=== PATIENT | female | born 1970 | race Caucasian/White ===

== ENCOUNTER → 2016-08-02 | Outpatient (REF) | payer MEDICAID ==
[~2016-08-02] MED LIST: LOSA50TA20 PO; ibuprofen OR
== END ==
LOC: M SFHCWAGY 12:51
PROVIDERS: ATTEND Nurse Practitioner Family
DX: N76.0 Acute vaginitis (principal)

== ENCOUNTER → 2016-12-29 | Outpatient (CLI) | payer MEDICAID, OTHER ==
--- NOTE | 2016-12-29 18:58 | REP ---
CHEST X-RAY PA AND LATERAL: 12/29/2016: Comparison: 11/30/2005, 03/04/2005 chest x-ray. Clinical history: Acute bronchitis. Findings: The two-view show the lung mac well inflated. CP angles are sharply defined. There is no effusion or lateral pleural thickening, peribronchial thickening and interstitial changes suggesting bronchitis or reactive airway disease. I do not see dense consolidation, pleural effusion or parenchymal mass. The heart is not enlarged and no vascular redistribution or pulmonary edema. The aorta is intact. Airway intact bony thorax without acute compression deformity. No free air under the diaphragm. Impression: 1. Perihilar changes of bronchitis or reactive airway disease. No dense consolidation or pleural effusion. Signed by Taras Barroso MD 12/29/2016 08:20 P
== END ==
LOC: M WUC 17:22
PROVIDERS: ATTEND Physician Assistant
DX: J20.9 Acute bronchitis, unspecified (principal)

== ENCOUNTER 2017-07-01 19:57 | Emergency (ER) | payer OTHER ==
[2017-07-01 23:21] LABS: HEMATOCRIT 40.5 % (36.0-47.0); MEAN CORPUSCULAR HEMOGLOBIN 31.3 pg (27.0-33.0); MEAN CORPUSCULAR HGB CONC 34.6 g/dl (32.0-36.5); MEAN CORPUSCULAR VOLUME 90.6 fl (80.0-96.0); PLATELET COUNT, AUTOMATED 272 10^3/uL (150-450); RED BLOOD COUNT 4.47 10^6/uL (4.00-5.40); RED CELL DISTRIBUTION WIDTH 13.6 % (11.5-14.5)
[2017-07-01 23:22] LABS: POSITIVE DIFF POS FLAG; WHITE BLOOD COUNT 16.2 10^3/uL (4.0-10.0)
[2017-07-01 23:23] LABS: ADD MANUAL DIFFER YES; DIFF SLIDE NUMBER 344; POSITIVE MORPH POS FLAG
[2017-07-01] MEDS: NS 1,000 ML IV (23:30)
[2017-07-01 23:33] LABS: D-DIMER QUANT 1900.5 ng/ml (<500)
[2017-07-01 23:42] LABS: ATYPICAL LYMPH 4 % (0-5); EOSINOPHILS 3 % (0-5); LYMPHOCYTES 41 % (16-52); MONOCYTES 3 % (0-8); NEUTROPHILS 49 % (35-75); PLATELET ESTIMATE NORMAL (NORMAL)
[2017-07-01 23:46] LABS: ANION GAP 8 MEQ/L (8-16); BLOOD UREA NITROGEN 31 MG/DL (7-18); CALCIUM LEVEL 9.9 MG/DL (8.5-10.1); CARBON DIOXIDE LEVEL 31 MEQ/L (21-32); CHLORIDE LEVEL 98 MEQ/L (98-107); CPK CREATINE PHOSPHOKINASE 61 U/L (26-192); GLOMERULAR FILTRATION RATE > 60.0 (>58); GLUCOSE, FASTING 116 MG/DL (70-100); MB/CK RELATIVE INDEX 1.63 (< OR =4); POTASSIUM SERUM 3.1 MEQ/L (3.5-5.1); SODIUM LEVEL 137 MEQ/L (136-145); TROPONIN I < 0.02 NG/ML (< 0.10)
[2017-07-02] MEDS ORDERED: ISOVUE-370 76% 100ML VIAL (Q9967) As Ordered (00:56)
== END 2017-07-02 02:48 | disposition home or self-care (01) ==
LOC: M ED 19:57
DX: R79.89 Other specified abnormal findings of blood chemistry (principal); R07.89 Other chest pain; I10 Essential (primary) hypertension; Z88.0 Allergy status to penicillin; Z88.1 Allergy status to other antibiotic agents; Z88.2 Allergy status to sulfonamides; F17.210 Nicotine dependence, cigarettes, uncomplicated
CPT/HCPCS: Q9967

== ENCOUNTER → 2017-07-05 | Outpatient (CLI) | payer OTHER ==
[2017-07-05 13:50] LABS: ANION GAP 8 MEQ/L (8-16); BLOOD UREA NITROGEN 13 MG/DL (7-18); CALCIUM LEVEL 8.5 MG/DL (8.5-10.1); CARBON DIOXIDE LEVEL 28 MEQ/L (21-32); CHLORIDE LEVEL 103 MEQ/L (98-107); CREATININE FOR GFR 0.63 MG/DL (0.55-1.30); GLOMERULAR FILTRATION RATE > 60.0 (>58); GLUCOSE, FASTING 86 MG/DL (70-100); POTASSIUM SERUM 3.9 MEQ/L (3.5-5.1); SODIUM LEVEL 139 MEQ/L (136-145); THYROID STIMULATING HORMONE 0.893 uIU/ML (0.358-3.740)
== END ==
LOC: M LAB 11:54
DX: I10 Essential (primary) hypertension (principal)
CPT/HCPCS: 84443

== ENCOUNTER → 2017-07-20 | Outpatient (CLI) | payer OTHER ==
[2017-07-20 11:52] LABS: BASO % 0.2 % (0.0-1.0); EOS # 0.2 10^3/uL (0.0-0.50); EOS % 2.6 % (0.0-3.0); HEMATOCRIT 34.9 % (36.0-47.0); HEMOGLOBIN 11.7 g/dl (12.0-16.0); IMMATURE GRANULOCYTE % 0.3 % (0-3.0); LYMPH # 2.4 10^3/uL (1.5-4.5); LYMPH % 36.1 % (24.0-44.0); MEAN CORPUSCULAR HEMOGLOBIN 31.4 pg (27.0-33.0); MEAN CORPUSCULAR HGB CONC 33.5 g/dl (32.0-36.5); MEAN CORPUSCULAR VOLUME 93.6 fl (80.0-96.0); MONO # 0.4 10^3/uL (0.0-0.8); MONO % 6.4 % (0.0-5.0); NEUTROPHILS # 3.6 10^3/uL (1.8-7.7); NEUTROPHILS % 54.4 % (36.0-66.0); PLATELET COUNT, AUTOMATED 174 10^3/uL (150-450); RED BLOOD COUNT 3.73 10^6/uL (4.00-5.40); RED CELL DISTRIBUTION WIDTH 13.4 % (11.5-14.5); WHITE BLOOD COUNT 6.6 10^3/uL (4.0-10.0)
[2017-07-20 11:54] LABS: SLIDE REVIEW Report; SOURCE PERIPHERAL SMEAR
[2017-07-20 11:55] LABS: REASON FOR REVIEW OTHER
== END ==
LOC: M LAB 11:15
DX: D72.89 Other specified disorders of white blood cells (principal); D64.9 Anemia, unspecified
CPT/HCPCS: 85025

== ENCOUNTER → 2017-07-24 | Outpatient (REF) | payer OTHER ==
[2017-07-24 18:04] LABS: APPEARANCE, URINE MANUAL HAZY (CLEAR); BILIRUBIN, URINE MANUAL NEGATIVE (NEGATIVE); BLOOD URINE MANUAL POSITIVE (NEGATIVE); COLOR, URINE MANUAL YELLOW (YELLOW); GLUCOSE, URINE (UA) MANUAL NEGATIVE (NEGATIVE); KETONE, URINE MANUAL NEGATIVE (NEGATIVE); LEUKOCYTE ESTERASE, URINE MAN NEGATIVE (NEGATIVE); NITRITE, URINE MANUAL NEGATIVE (NEGATIVE); PROTEIN, URINE MANUAL NEGATIVE (NEGATIVE); UROBILINOGEN, URINE MANUAL NORMAL (NORMAL)
[2017-07-24 18:05] LABS: MICROSCOPIC INDICATED? MAN YES (NO)
[2017-07-24 18:06] LABS: AMORPHOUS SEDIMENT, URINE LARGE AMOUNT (NEGATIVE); BACTERIA, URINE SMALL AMOUNT; HYALINE CAST, URINE NONE SEEN /lpf (0-1); MICROSCOPIC EXAM PERFORMED; SQUAMOUS EPITHELIAL CELL URINE LARGE AMOUNT /hpf (SMALL AMT); WBC, URINE 0-1 /hpf (0-3)
== END ==
LOC: M LAB REF 09:05
DX: M54.5 Low back pain (principal)
CPT/HCPCS: 81000

== ENCOUNTER → 2017-07-26 | Outpatient (CLI) | payer OTHER | LOC: M RAD 09:29 | DX: M54.5 Low back pain (principal); R31.9 Hematuria, unspecified | CPT/HCPCS: 74176 ==

== ENCOUNTER → 2017-08-19 | Outpatient (REF) | payer OTHER | LOC: M SFHCWAGY 11:36 | DX: Z12.4 Encounter for screening for malignant neoplasm of cervix (principal) | CPT/HCPCS: 88142 ==

== ENCOUNTER → 2017-08-19 | Outpatient (CLI) | payer OTHER | LOC: M WHC 10:49 | DX: R92.1 Mammographic calcification found on diagnostic imaging of breast (principal); Z80.0 Family history of malignant neoplasm of digestive organs | CPT/HCPCS: 77067 ==

== ENCOUNTER → 2018-02-07 | Outpatient (CLI) | payer OTHER | LOC: M RAD 10:47 | DX: M79.604 Pain in right leg (principal) | CPT/HCPCS: 93971 ==

== ENCOUNTER 2018-02-16 18:22 | Emergency (ER) | payer OTHER ==
[2018-02-16 19:32] LABS: BASO % 0.2 % (0.0-1.0); EOS # 0.1 10^3/uL (0.0-0.50); EOS % 1.3 % (0.0-3.0); HEMATOCRIT 35.3 % (36.0-47.0); IMMATURE GRANULOCYTE % 0.5 % (0-3.0); LYMPH % 23.5 % (24.0-44.0); MEAN CORPUSCULAR HEMOGLOBIN 30.5 pg (27.0-33.0); MEAN CORPUSCULAR VOLUME 89.8 fl (80.0-96.0); MONO # 0.4 10^3/uL (0.0-0.8); NEUTROPHILS # 5.9 10^3/uL (1.8-7.7); NEUTROPHILS % 69.5 % (36.0-66.0); PLATELET COUNT, AUTOMATED 257 10^3/uL (150-450); RED BLOOD COUNT 3.93 10^6/uL (4.00-5.40); RED CELL DISTRIBUTION WIDTH 13.3 % (11.5-14.5); WHITE BLOOD COUNT 8.5 10^3/uL (4.0-10.0)
[2018-02-16 19:51] LABS: INR 0.87; PROTHROMBIN TIME 11.9 SECONDS (12.1-14.4)
[2018-02-16 19:57] LABS: ALBUMIN 3.8 GM/DL (3.2-5.2); ALBUMIN/GLOBULIN RATIO 0.97 (1.00-1.93); ALKALINE PHOSPHATASE 139 U/L (45-117); ALT/SGPT 38 U/L (12-78); ANION GAP 8 MEQ/L (8-16); AST/SGOT 30 U/L (7-37); BILIRUBIN,DIRECT < 0.1 MG/DL (0.0-0.2); BILIRUBIN,TOTAL 0.3 MG/DL (0.2-1.0); BLOOD UREA NITROGEN 14 MG/DL (7-18); CARBON DIOXIDE LEVEL 25 MEQ/L (21-32); CHLORIDE LEVEL 106 MEQ/L (98-107); CPK CREATINE PHOSPHOKINASE 157 U/L (26-192); CREATININE FOR GFR 0.85 MG/DL (0.55-1.30); GLOMERULAR FILTRATION RATE > 60.0 (>58); GLUCOSE, FASTING 156 MG/DL (70-100); MB/CK RELATIVE INDEX 1.08 (< OR =4); POTASSIUM SERUM 3.8 MEQ/L (3.5-5.1); SODIUM LEVEL 139 MEQ/L (136-145); TOTAL PROTEIN 7.7 GM/DL (6.4-8.2); TROPONIN I < 0.02 NG/ML (< 0.10)
[2018-02-16] MEDS: GI COCKTAIL 50ML BTL(HYOSCYAMINE/MAALOX/LIDOCAINE VISCOUS)(1:3:1) PO (20:12)
== END 2018-02-16 21:10 | disposition home or self-care (01) ==
LOC: M ED 18:22
DX: R07.89 Other chest pain (principal); I10 Essential (primary) hypertension; E78.5 Hyperlipidemia, unspecified; Z79.899 Other long term (current) drug therapy; Z88.0 Allergy status to penicillin; Z88.1 Allergy status to other antibiotic agents; Z88.2 Allergy status to sulfonamides; Z87.891 Personal history of nicotine dependence
CPT/HCPCS: 71046

== ENCOUNTER → 2018-07-19 | Outpatient (CLI) | payer OTHER ==
[~2018-07-19] MED LIST changes: +ALPR0.25 PO; +CITA10TA5; +ESTR25TA; +LOSA100T5 PO; -LOSA50TA20 PO; +LOSA50TA88 PO; +PROV5TAB2; +TYLE500T78 PO; +VENTAER
--- NOTE | 2018-07-19 13:46 | REP ---
Chest two views HISTORY: Shortness of breath Comparison: 07/01/2017 The lungs are clear. The heart is normal in size. The pulmonary vasculature is normal in appearance. The bony structure is intact. IMPRESSION: No acute disease. Electronically Signed by Gagandeep Sevilla MD 07/19/2018 01:39 P
== END ==
LOC: M WUC 12:27
PROVIDERS: ATTEND Physician Assistant
DX: R06.02 Shortness of breath (principal)

== ENCOUNTER → 2018-08-10 | Outpatient (REF) | payer OTHER ==
[2018-08-10 12:54] LABS: BASO % 0.3 % (0.0-1.0); EOS # 0.1 10^3/uL (0.0-0.50); EOS % 2.2 % (0.0-3.0); HEMATOCRIT 33.8 % (36.0-47.0); HEMOGLOBIN 11.3 g/dl (12.0-15.5); LYMPH # 1.8 10^3/uL (1.5-4.5); LYMPH % 31.7 % (24.0-44.0); MEAN CORPUSCULAR HEMOGLOBIN 30.2 pg (27.0-33.0); MEAN CORPUSCULAR HGB CONC 33.4 g/dl (32.0-36.5); MEAN CORPUSCULAR VOLUME 90.4 fl (80.0-96.0); MONO # 0.4 10^3/uL (0.0-0.8); MONO % 6.4 % (0.0-5.0); NEUTROPHILS # 3.4 10^3/uL (1.8-7.7); NEUTROPHILS % 59.1 % (36.0-66.0); PLATELET COUNT, AUTOMATED 276 10^3/uL (150-450); RED BLOOD COUNT 3.74 10^6/uL (4.00-5.40); WHITE BLOOD COUNT 5.8 10^3/uL (4.0-10.0)
[2018-08-10 13:17] LABS: ALBUMIN 3.5 GM/DL (3.2-5.2); ALT/SGPT 20 U/L (12-78); BILIRUBIN,TOTAL 0.3 MG/DL (0.2-1.0); BLOOD UREA NITROGEN 20 MG/DL (7-18); CALCIUM LEVEL 8.8 MG/DL (8.5-10.1); CARBON DIOXIDE LEVEL 27 MEQ/L (21-32); CHLORIDE LEVEL 104 MEQ/L (98-107); CHOLESTEROL LEVEL 177 MG/DL (<200); CHOLESTEROL RISK RATIO 3.933 (<5); CREATININE FOR GFR 0.55 MG/DL (0.55-1.30); GLOMERULAR FILTRATION RATE > 60.0 (>58); GLUCOSE, FASTING 99 MG/DL (70-100); HDL CHOLESTEROL 45 MG/DL (>40); LDL CHOLESTEROL 106 MG/DL (<100); NON-HDL-C 132 MG/DL; POTASSIUM SERUM 4.3 MEQ/L (3.5-5.1); SODIUM LEVEL 138 MEQ/L (136-145); TOTAL PROTEIN 6.7 GM/DL (6.4-8.2); TRIGLYCERIDES LEVEL 129 MG/DL (<150)
== END ==
LOC: M LABDRAW1 12:45
PROVIDERS: ATTEND Family Medicine
DX: I10 Essential (primary) hypertension (principal)

== ENCOUNTER → 2018-09-29 | Outpatient (REF) | payer OTHER ==
[~2018-09-29] MED LIST changes: +FLAG500T PO; +FLUO20CA19
== END ==
LOC: M LAB REF 13:44
PROVIDERS: ATTEND Physician Assistant
DX: R10.13 Epigastric pain (principal)

== ENCOUNTER → 2018-09-29 | Outpatient (CLI) | payer OTHER ==
--- NOTE | 2018-09-29 11:31 | REP ---
KUB: Two views. History: Pain. Findings: Bowel gas pattern is normal. Multiple pelvic phleboliths are noted bilaterally. No bony abnormality is seen. Psoas margins and flank stripes are intact. No mass organomegaly is seen. Impression: Negative KUB. Electronically Signed by Yonas Herndon MD 09/29/2018 11:23 A
[2018-09-29 13:04] LABS: BASO % 0.3 % (0.0-1.0); EOS # 0.1 10^3/uL (0.0-0.50); EOS % 1.3 % (0.0-3.0); HEMATOCRIT 36.3 % (36.0-47.0); HEMOGLOBIN 11.8 g/dl (12.0-15.5); LYMPH # 1.8 10^3/uL (1.5-4.5); LYMPH % 23.7 % (24.0-44.0); MEAN CORPUSCULAR HGB CONC 32.5 g/dl (32.0-36.5); MEAN CORPUSCULAR VOLUME 92.4 fl (80.0-96.0); MONO # 0.5 10^3/uL (0.0-0.8); MONO % 6.6 % (0.0-5.0); NEUTROPHILS % 67.6 % (36.0-66.0); PLATELET COUNT, AUTOMATED 261 10^3/uL (150-450); RED BLOOD COUNT 3.93 10^6/uL (4.00-5.40); WHITE BLOOD COUNT 7.4 10^3/uL (4.0-10.0)
[2018-09-29 13:27] LABS: ALBUMIN 3.8 GM/DL (3.2-5.2); ALT/SGPT 26 U/L (12-78); AMYLASE 25 U/L (25-115); BILIRUBIN,TOTAL 0.4 MG/DL (0.2-1.0); BLOOD UREA NITROGEN 12 MG/DL (7-18); C REACTIVE PROTEIN QUANTITATIV 1.15 MG/DL (0.00-0.30); CARBON DIOXIDE LEVEL 28 MEQ/L (21-32); CHLORIDE LEVEL 102 MEQ/L (98-107); CREATININE FOR GFR 0.64 MG/DL (0.55-1.30); ERYTHROCYTE SEDIMENTATION RATE 45 mm/hr (0-20); GLOMERULAR FILTRATION RATE > 60.0 (>58); GLUCOSE, FASTING 99 MG/DL (70-100); LIPASE 58 U/L (73-393); POTASSIUM SERUM 4.2 MEQ/L (3.5-5.1); SODIUM LEVEL 139 MEQ/L (136-145); TOTAL PROTEIN 6.9 GM/DL (6.4-8.2)
== END ==
LOC: M WUC 10:44
PROVIDERS: ATTEND Physician Assistant
DX: R10.13 Epigastric pain (principal)

== ENCOUNTER 2018-09-30 20:58 | Emergency (ER) | payer OTHER ==
[~2018-09-30] VITALS: Ht 170.2 cm; Wt 100.0 kg
[~2018-09-30 20:58] MED LIST changes: -FLAG500T PO; -FLUO20CA19
[2018-09-30] MEDS ORDERED: FLUO20CA19 (21:23)
[2018-09-30] MEDS ORDERED: cloNIDine 0.1 MG TAB PO ONE ×2 (21:45→22:30)
[2018-09-30 22:34] VITALS: BP 170/110
[2018-09-30] MEDS ORDERED: FLAG500T PO (23:16)
[2018-09-30 23:47] VITALS: BP 125/79
== END 2018-09-30 23:48 | disposition home or self-care (01) ==
LOC: M ED 20:58
DX: I10 Essential (primary) hypertension (principal); T36.8X5A Adverse effect of other systemic antibiotics, initial encounter; X58.XXXA Exposure to other specified factors, initial encounter; Y92.89 Other specified places as the place of occurrence of the external cause; J45.909 Unspecified asthma, uncomplicated; F41.9 Anxiety disorder, unspecified; Z79.899 Other long term (current) drug therapy; Z88.0 Allergy status to penicillin; Z88.1 Allergy status to other antibiotic agents; Z88.2 Allergy status to sulfonamides; Z88.8 Allergy status to other drugs, medicaments and biological substances

== ENCOUNTER → 2018-10-19 | Outpatient (REF) | payer OTHER ==
[~2018-10-19] MED LIST changes: +FLAG500T PO; +FLUO20CA19
[2018-10-19 15:03] LABS: BASO % 0.3 % (0.0-1.0); EOS # 0.1 10^3/uL (0.0-0.50); EOS % 1.7 % (0.0-3.0); HEMATOCRIT 38.3 % (36.0-47.0); HEMOGLOBIN 12.3 g/dl (12.0-15.5); LYMPH # 1.7 10^3/uL (1.5-4.5); LYMPH % 28.3 % (24.0-44.0); MEAN CORPUSCULAR HEMOGLOBIN 29.8 pg (27.0-33.0); MEAN CORPUSCULAR HGB CONC 32.1 g/dl (32.0-36.5); MEAN CORPUSCULAR VOLUME 92.7 fl (80.0-96.0); MONO # 0.4 10^3/uL (0.0-0.8); MONO % 6.3 % (0.0-5.0); NEUTROPHILS # 3.8 10^3/uL (1.8-7.7); NEUTROPHILS % 63.1 % (36.0-66.0); PLATELET COUNT, AUTOMATED 269 10^3/uL (150-450); RED BLOOD COUNT 4.13 10^6/uL (4.00-5.40); WHITE BLOOD COUNT 6.1 10^3/uL (4.0-10.0)
[2018-10-19 15:37] LABS: ALBUMIN 3.9 GM/DL (3.2-5.2); ALT/SGPT 24 U/L (12-78); BILIRUBIN,TOTAL 0.3 MG/DL (0.2-1.0); BLOOD UREA NITROGEN 16 MG/DL (7-18); CALCIUM LEVEL 9.7 MG/DL (8.5-10.1); CARBON DIOXIDE LEVEL 29 MEQ/L (21-32); CHLORIDE LEVEL 106 MEQ/L (98-107); CREATININE FOR GFR 0.71 MG/DL (0.55-1.30); GLOMERULAR FILTRATION RATE > 60.0 (>58); GLUCOSE, FASTING 103 MG/DL (70-100); MAGNESIUM LEVEL 1.7 MG/DL (1.8-2.4); POTASSIUM SERUM 4.8 MEQ/L (3.5-5.1); SODIUM LEVEL 141 MEQ/L (136-145)
== END ==
LOC: M LABDRAW1 13:59
PROVIDERS: ATTEND Family Medicine
DX: A04.72 Enterocolitis due to Clostridium difficile, not specified as recurrent (principal)

== ENCOUNTER → 2018-10-27 | Outpatient (REF) | payer OTHER ==
[2018-10-27 13:00] LABS: FREE T3 2.7 PG/ML (2.2-4.0); FREE T4 0.96 NG/DL (0.76-1.46); THYROID STIMULATING HORMONE 3.08 uIU/ML (0.358-3.740)
== END ==
LOC: M LABDRAW1 11:50
PROVIDERS: ATTEND Family Medicine
DX: E07.9 Disorder of thyroid, unspecified (principal); R70.0 Elevated erythrocyte sedimentation rate

== ENCOUNTER 2019-01-02 09:47 | Emergency (ER) | payer OTHER ==
[~2019-01-02] VITALS: Ht 167.6 cm; Wt 104.5 kg
[2019-01-02 10:33] LABS: BASO % 0.4 % (0.0-1.0); EOS # 0.2 10^3/uL (0.0-0.50); EOS % 2.4 % (0.0-3.0); HEMATOCRIT 36.6 % (36.0-47.0); HEMOGLOBIN 12.1 g/dl (12.0-15.5); LYMPH # 1.9 10^3/uL (1.5-4.5); MEAN CORPUSCULAR HEMOGLOBIN 30.6 pg (27.0-33.0); MEAN CORPUSCULAR HGB CONC 33.1 g/dl (32.0-36.5); MEAN CORPUSCULAR VOLUME 92.4 fl (80.0-96.0); MONO # 0.6 10^3/uL (0.0-0.8); MONO % 7.9 % (0.0-5.0); NEUTROPHILS # 4.8 10^3/uL (1.8-7.7); NEUTROPHILS % 63.4 % (36.0-66.0); PLATELET COUNT, AUTOMATED 263 10^3/uL (150-450); RED BLOOD COUNT 3.96 10^6/uL (4.00-5.40); WHITE BLOOD COUNT 7.6 10^3/uL (4.0-10.0)
[2019-01-02 10:44] LABS: INR 0.96; PROTHROMBIN TIME 12.5 SECONDS (11.8-14.0)
[2019-01-02] MEDS ORDERED: LOSA100T50 PO (10:49)
[2019-01-02 10:52] LABS: BLOOD UREA NITROGEN 17 MG/DL (7-18); CALCIUM LEVEL 8.9 MG/DL (8.5-10.1); CARBON DIOXIDE LEVEL 26 MEQ/L (21-32); CHLORIDE LEVEL 106 MEQ/L (98-107); CK-MB VALUE MASS 1.6 NG/ML (<3.6); CPK CREATINE PHOSPHOKINASE 114 U/L (26-192); CREATININE FOR GFR 0.78 MG/DL (0.55-1.30); GLOMERULAR FILTRATION RATE > 60.0 (>58); GLUCOSE, FASTING 122 MG/DL (70-100); POTASSIUM SERUM 3.8 MEQ/L (3.5-5.1); SODIUM LEVEL 139 MEQ/L (136-145); TROPONIN I < 0.02 NG/ML (< 0.10)
--- NOTE | 2019-01-02 11:06 | REP ---
Clinical: Acute chest pain . Comparison: 07/19/2018 . Findings: The mediastinum and cardiac silhouette are stable and within normal limits for portable technique. The lung mac are clear without acute consolidation, effusion, or pneumothorax. Skeletal structures are intact. Impression: No acute cardiopulmonary process appreciated. Electronically Signed by Henry Beavers MD 01/02/2019 10:57 A
[2019-01-02] MEDS ORDERED: HYDR12.55 PO (13:12)
[2019-01-02 13:16] VITALS: BP 150/85
[2019-01-02] MEDS ORDERED: NORV5TAB PO (13:28)
--- NOTE | 2019-01-03 19:27 | ECGEPIP ---
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
== END 2019-01-02 13:45 | disposition home or self-care (01) ==
LOC: M ED 09:47
DX: I10 Essential (primary) hypertension (principal); E87.5 Hyperkalemia; J45.909 Unspecified asthma, uncomplicated; Z87.891 Personal history of nicotine dependence; Z88.0 Allergy status to penicillin; Z88.2 Allergy status to sulfonamides; Z88.1 Allergy status to other antibiotic agents; Z79.899 Other long term (current) drug therapy

== ENCOUNTER → 2019-01-25 | Outpatient (CLI) | payer OTHER ==
[~2019-01-25] MED LIST changes: +AMLO25TA PO; +HYDR12.55 PO; +LOSA100T50 PO; +NORV5TAB PO; +PRIL20TA2 PO; +PROZ20CA11 PO
--- NOTE | 2019-01-30 16:15 | SLEEPHOME ---
DATE OF PROCEDURE: 01/25/2019 ORDERED BY: KUMAR John Diagnostic home sleep testing was performed due to concern for the obstructive sleep apnea syndrome in this patient with a history of excessive somnolence and nonrestorative sleep who has comorbidities of hypertension, obesity and acid reflux disease. For testing a nocturnal T3 respiratory monitoring device was used. Continuous record was made of pulse, oxygen saturation, airflow, chest, abdominal strain and body position. 5 hours and 59 minutes of data were reviewed. There were 5 hours and 26 minutes marked as time in bed. During the interval marked time in bed, there were 28 respiratory events identified of 10 seconds in duration or greater for a respiratory event index of 5.1. The events were primarily obstructive. Baseline pulse rate 86, pulse rate ranged 65-117. Baseline saturation 93%. Saturations fell only to 90%. Testing was performed in both the supine and nonsupine positions. IMPRESSION: Abnormal home sleep testing with repetitive respiratory events and oxygen desaturations to 90% with a respiratory event index of 5.1 is consistent with the obstructive sleep apnea syndrome. RECOMMENDATIONS: As the patient's events were associated with the supine posture, sleep position retraining for avoidance of the supine posture would be a reasonable first intervention. Should sleep symptoms persist, further evaluation may be needed.
== END ==
LOC: M SLEEP HO 11:15
PROVIDERS: ATTEND Nurse Practitioner Family
DX: R40.0 Somnolence (principal)

== ENCOUNTER → 2019-01-29 | Outpatient (CLI) | payer OTHER ==
[~2019-01-29] MED LIST changes: -AMLO25TA PO; -PRIL20TA2 PO; -PROZ20CA11 PO
[2019-01-29 11:43] LABS: ALBUMIN 3.5 GM/DL (3.2-5.2); ALT/SGPT 30 U/L (12-78); BILIRUBIN,TOTAL 0.3 MG/DL (0.2-1.0); BLOOD UREA NITROGEN 23 MG/DL (7-18); CARBON DIOXIDE LEVEL 29 MEQ/L (21-32); CHLORIDE LEVEL 102 MEQ/L (98-107); CHOLESTEROL LEVEL 229 MG/DL (<200); CHOLESTEROL RISK RATIO 4.978 (<5); CREATININE FOR GFR 0.75 MG/DL (0.55-1.30); FREE T4 0.96 NG/DL (0.76-1.46); GLOMERULAR FILTRATION RATE > 60.0 (>51); GLUCOSE, FASTING 116 MG/DL (70-100); HDL CHOLESTEROL 46 MG/DL (>40); LDL CHOLESTEROL 153 MG/DL (<100); NON-HDL-C 183 MG/DL; SODIUM LEVEL 140 MEQ/L (136-145); TRIGLYCERIDES LEVEL 148 MG/DL (<150)
== END ==
LOC: M LAB 10:09
PROVIDERS: ATTEND Internal Medicine Cardiovascular Disease
DX: E78.5 Hyperlipidemia, unspecified (principal)

== ENCOUNTER → 2019-02-01 | Outpatient (CLI) | payer OTHER ==
[~2019-02-01] MED LIST changes: +AMLO25TA PO; +PRIL20TA2 PO; +PROZ20CA11 PO
--- NOTE | 2019-02-01 13:56 | REPMRS ---
Patient History The patient states she had a clinical breast exam in 01/2019. No known family history of cancer. Benign lumpectomy of the left breast, June 20, 2014. No Hormone Replacement Therapy Digital Woman Screen Mammo: February 01, 2019 - Exam #: [id number] Bilateral CC and MLO view(s) were taken. Technologist: Beena Fernandes, Technologist Prior study comparison: August 19, 2017, digital woman screen mammo performed at [facility]. June 18, 2015, digital woman screen mammo performed at [facility]. May 09, 2014, digital mammo diagnostic bilateral, performed at [facility]. FINDINGS: There are scattered fibroglandular densities. There has been no change in the appearance of the mammogram from the prior studies. There is a mild amount of scattered fibroglandular density which is fairly symmetric. There is no interval development of dominant mass, architectural distortion, or grouped microcalcification suggestive of malignancy. 3-D tomosynthesis shows no additional findings. Assessment: BI-RADS/ACR category 1 mammogram. Negative Mammogram. Recommendation Routine screening mammogram of both breasts in 1 year (for women over age 40). This patient's Lifetime Breast Cancer Risk is estimated at 7.3 %. This mammogram was interpreted with the aid of an FDA-approved computer-aided dectection system. Electronically Signed By: Sunny Herndon MD 02/01/19 [id number]
== END ==
LOC: M WHC 11:24
PROVIDERS: ATTEND Nurse Practitioner Family
DX: Z12.31 Encounter for screening mammogram for malignant neoplasm of breast (principal)

== ENCOUNTER 2019-03-09 08:31 | Day surgery (SDC) | payer OTHER ==
[~2019-03-09] VITALS: Ht 170.2 cm; Wt 106.5 kg
[~2019-03-09 08:31] MED LIST changes: +NS 1,000 ML IV ONE
[2019-03-09] MEDS ORDERED: LIDOCAINE 2% INJ 100 MG/5 ML SDV (FOR ANES.) As Ordered ONE (08:43)
[2019-03-09] MEDS ORDERED: PROPOFOL 200 MG/20 ML VIAL As Ordered ONE ×3 (08:43→11:02)
[2019-03-09] MEDS ORDERED: fentaNYL 100 MCG/2 ML INJECTION (J3010) As Ordered ONE (09:51)
--- NOTE | 2019-03-09 11:21 | ROOR ---
Patient Name: Natalya Uribe Procedure Date: 03/09/2019 10:28 AM Date of : 1970 Age: 49 Room: [facility] Gender: Female Note Status: Finalized Procedure: Upper GI endoscopy Indications: Dyspepsia Providers: Alberto Gutierrez MD Referring MD: Tony Ocampo MD Requesting Provider: Medicines: Monitored Anesthesia Care Complications: No immediate complications. Procedure: Pre-Anesthesia Assessment: - Prior to the procedure, a History and Physical was performed, and patient medications and allergies were reviewed. The patient is competent. The risks and benefits of the procedure and the sedation options and risks were discussed with the patient. All questions were answered and informed consent was obtained. Patient identification and proposed procedure were verified by the physician, the nurse and the anesthesiologist in the procedure room. Mental Status Examination: alert and oriented. Airway Examination: normal oropharyngeal airway and neck mobility. Respiratory Examination: clear to auscultation. CV Examination: normal. Prophylactic Antibiotics: The patient does not require prophylactic antibiotics. Prior Anticoagulants: The patient has taken no previous anticoagulant or antiplatelet agents. ASA Grade Assessment: III - A patient with severe systemic disease. After reviewing the risks and benefits, the patient was deemed in satisfactory condition to undergo the procedure. The anesthesia plan was to use monitored anesthesia care (MAC). Immediately prior to administration of medications, the patient was re-assessed for adequacy to receive sedatives. The heart rate, respiratory rate, oxygen saturations, blood pressure, adequacy of pulmonary ventilation, and response to care were monitored throughout the procedure. The physical status of the patient was re-assessed after the procedure. The Endoscope was introduced through the mouth, and advanced to the second part of duodenum. The upper GI endoscopy was accomplished without difficulty. The patient tolerated the procedure well. Findings: The examined esophagus was normal. The Z-line was regular and was found 40 cm from the incisors. Scattered mild inflammation characterized by erythema and granularity was found in the gastric antrum. Biopsies were taken with a cold forceps for Helicobacter pylori testing. Verification of patient identification for the specimen was done by the physician and nurse using the patient's name, date and medical record number. Estimated blood loss was minimal. The duodenal bulb and second portion of the duodenum were normal. Biopsies for histology were taken with a cold forceps for evaluation of celiac disease. Impression: - Normal esophagus. - Z-line regular, 40 cm from the incisors. - Gastritis. Biopsied. - Normal duodenal bulb and second portion of the duodenum. Biopsied. Recommendation: - Patient has a contact number available for emergencies. The signs and symptoms of potential delayed complications were discussed with the patient. Return to normal activities tomorrow. Written discharge instructions were provided to the patient. - High fiber diet. - Continue present medications. - Await pathology results. 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 - Telephone GI clinic for pathology results in 2 weeks. - Return to primary care physician. Alberto Gutierrez MD Alberto Gutierrez MD 03/09/2019 11:21:07 AM Electronically signed by Alberto Gutierrez MD Number of Addenda: 0 Note Initiated On: 03/09/2019 10:28 AM Estimated Blood Loss: Estimated blood loss was minimal.
--- NOTE | 2019-03-09 11:25 | ROOR ---
Patient Name: Natalya Uribe Procedure Date: 03/09/2019 10:29 AM Date of : 1970 Age: 49 Room: [facility] Gender: Female Note Status: Finalized Procedure: Colonoscopy Indications: Screening for colorectal malignant neoplasm Providers: Alberto Gutierrez MD Referring MD: Tony Ocampo MD Requesting Provider: Medicines: Monitored Anesthesia Care Complications: No immediate complications. Procedure: Pre-Anesthesia Assessment: - Prior to the procedure, a History and Physical was performed, and patient medications and allergies were reviewed. The patient is competent. The risks and benefits of the procedure and the sedation options and risks were discussed with the patient. All questions were answered and informed consent was obtained. Patient identification and proposed procedure were verified by the physician, the nurse and the anesthesiologist in the procedure room. Mental Status Examination: alert and oriented. Airway Examination: normal oropharyngeal airway and neck mobility. Respiratory Examination: clear to auscultation. CV Examination: normal. Prophylactic Antibiotics: The patient does not require prophylactic antibiotics. Prior Anticoagulants: The patient has taken no previous anticoagulant or antiplatelet agents. ASA Grade Assessment: II - A patient with mild systemic disease. After reviewing the risks and benefits, the patient was deemed in satisfactory condition to undergo the procedure. The anesthesia plan was to use monitored anesthesia care (MAC). Immediately prior to administration of medications, the patient was re-assessed for adequacy to receive sedatives. The heart rate, respiratory rate, oxygen saturations, blood pressure, adequacy of pulmonary ventilation, and response to care were monitored throughout the procedure. The physical status of the patient was re-assessed after the procedure. The Colonoscope was introduced through the anus and advanced to the terminal ileum, with identification of the appendiceal orifice and IC valve. The colonoscopy was performed without difficulty. The patient tolerated the procedure well. The quality of the bowel preparation was good. The ileocecal valve, appendiceal orifice, and rectum were photographed. Scope insertion time was 3 minutes. Scope withdrawal time was 9 minutes. The total duration of the procedure was 12 minutes. Findings: The perianal and digital rectal examinations were normal. A 6 mm polyp was found in the transverse colon. The polyp was sessile. The polyp was removed with a cold snare. Resection and retrieval were complete. Verification of patient identification for the specimen was done by the physician and nurse using the patient's name, date and medical record number. Estimated blood loss was minimal. Two sessile polyps were found in the recto-sigmoid colon. The polyps were 5 to 6 mm in size. These polyps were removed with a cold snare. Resection and retrieval were complete. Multiple small and large-mouthed diverticula were found from sigmoid to descending colon. There was no evidence of diverticular bleeding. Non-bleeding external and internal hemorrhoids were found during retroflexion. The hemorrhoids were medium-sized. Impression: - One 6 mm polyp in the transverse colon, removed with a cold snare. Resected and retrieved. - Two 5 to 6 mm polyps at the recto-sigmoid colon, removed with a cold snare. Resected and retrieved. - Moderate diverticulosis from sigmoid to descending colon. There was no evidence of diverticular bleeding. - Non-bleeding external and internal hemorrhoids. Recommendation: - Patient has a contact number available for emergencies. The signs and symptoms of potential delayed complications were discussed with the patient. Return to normal activities tomorrow. Written discharge instructions were provided to the patient. - High fiber diet. - Continue present medications. - Await pathology results. - Repeat colonoscopy in 3 - 5 years for surveillance based on pathology results. - Telephone GI clinic for pathology results in 2 weeks. - Return to primary care physician. Alberto Gutierrez MD Alberto Gutierrez MD 03/09/2019 11:25:01 AM Electronically signed by Alberto Gutierrez MD Number of Addenda: 0 Note Initiated On: 03/09/2019 10:29 AM Estimated Blood Loss: Estimated blood loss was minimal.
[2019-03-09 11:35] VITALS: BP 138/76
== END 2019-03-09 11:39 | disposition home or self-care (01) ==
LOC: M OPP 08:31
PROVIDERS: ATTEND Internal Medicine Gastroenterology
DX: Z12.11 Encounter for screening for malignant neoplasm of colon (principal); K63.5 Polyp of colon; K64.8 Other hemorrhoids; K57.30 Diverticulosis of large intestine without perforation or abscess without bleeding; R10.13 Epigastric pain; K29.70 Gastritis, unspecified, without bleeding; G47.30 Sleep apnea, unspecified; Z79.899 Other long term (current) drug therapy; Z88.0 Allergy status to penicillin; Z88.1 Allergy status to other antibiotic agents; Z88.8 Allergy status to other drugs, medicaments and biological substances
CPT/HCPCS: 43239; 45385; 88305; J3010

== ENCOUNTER → 2019-03-15 | Outpatient (CLI) | payer OTHER ==
[~2019-03-15] MED LIST changes: -NS 1,000 ML IV ONE
[2019-03-15 13:42] LABS: BLOOD UREA NITROGEN 20 MG/DL (7-18); CALCIUM LEVEL 9.1 MG/DL (8.5-10.1); CARBON DIOXIDE LEVEL 30 MEQ/L (21-32); CHLORIDE LEVEL 104 MEQ/L (98-107); CREATININE FOR GFR 0.69 MG/DL (0.55-1.30); GLOMERULAR FILTRATION RATE > 60.0 (>51); GLUCOSE, FASTING 124 MG/DL (70-100); POTASSIUM SERUM 3.5 MEQ/L (3.5-5.1); SODIUM LEVEL 141 MEQ/L (136-145)
--- NOTE | 2019-03-17 09:55 | ECGEPIP ---
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
== END ==
LOC: M LAB 12:25
PROVIDERS: ATTEND Orthopaedic Surgery Hand Surgery
DX: Z01.810 Encounter for preprocedural cardiovascular examination (principal); M67.432 Ganglion, left wrist; I10 Essential (primary) hypertension; Z79.899 Other long term (current) drug therapy

== ENCOUNTER → 2019-03-28 | Outpatient (REF) | payer OTHER ==
[2019-03-28 16:02] LABS: BLOOD UREA NITROGEN 23 MG/DL (7-18); CARBON DIOXIDE LEVEL 31 MEQ/L (21-32); CHLORIDE LEVEL 103 MEQ/L (98-107); CREATININE FOR GFR 0.77 MG/DL (0.55-1.30); GLOMERULAR FILTRATION RATE > 60.0 (>51); GLUCOSE, FASTING 116 MG/DL (70-100); POTASSIUM SERUM 3.5 MEQ/L (3.5-5.1); SODIUM LEVEL 140 MEQ/L (136-145)
== END ==
LOC: M LABDRAW1 13:45
PROVIDERS: ATTEND Physician Assistant
DX: M67.432 Ganglion, left wrist (principal)

== ENCOUNTER → 2019-04-04 | Outpatient (REF) | payer OTHER | LOC: M LAB REF 17:14 | PROVIDERS: ATTEND Orthopaedic Surgery Hand Surgery | DX: M67.432 Ganglion, left wrist (principal) ==

== ENCOUNTER → 2019-07-24 | Outpatient (CLI) | payer OTHER ==
[~2019-07-24] MED LIST changes: -FLUO20CA19; +FLUO20CA22; +METHACHOLINE KIT (J7674) INH ONE
--- NOTE | 2019-07-24 10:39 | PFTRPT ---
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 Review Status: Not Reviewed Pre-Bronch Post-Bronch Pred Actual %Pred Actual %Chng SPIROMETRY FVC (L) 3.78 3.10 81 3.02 -2 FEV1 (L) 2.99 2.50 83 2.50 FEV1/FVC (%) 80 81 100 83 2 FEF 25% (L/sec) 5.42 5.74 105 5.82 1 FEF 50% (L/sec) 3.90 3.39 86 3.57 5 FEF 75% (L/sec) 1.43 0.91 63 0.84 -7 FEF 25-75% (L/sec) 2.86 2.49 87 2.49 FEF Max (L/sec) 7.03 6.12 87 6.06 FIVC (L) 3.13 3.09 -1 FIF 50% (L/sec) 4.10 6.00 146 3.97 -33 FIF Max (L/sec) 6.04 4.32 -28 Expiratory Time (sec) 6.74 6.56 -2 Back Extrap Vol (L) 0.09 0.09 -3 Time To FEFmax (sec) 0.089 0.082 -7
--- NOTE | 2019-07-25 15:25 | METHCHAL ---
DATE OF PROCEDURE: 07/24/2019 INTERPRETATION: The study appears to be of excellent technical quality. Under protocol methacholine was administered. At a dose of 2.5 mg or 13.875CDUs, a 31% decline in the FEV1 was noted. The PC of 0.61 is significant. Flow rates did return to baseline post bronchodilator administration. IMPRESSION: Positive methacholine challenge study.
== END ==
LOC: M CARPUL 09:22
PROVIDERS: ATTEND Nurse Practitioner Family
DX: G47.33 Obstructive sleep apnea (adult) (pediatric) (principal)
CPT/HCPCS: 94070; 95070; J7674

== ENCOUNTER 2019-09-28 19:58 | Emergency (ER) | payer OTHER ==
[~2019-09-28] VITALS: Ht 167.6 cm; Wt 109.1 kg
[~2019-09-28 19:58] MED LIST changes: -METHACHOLINE KIT (J7674) INH ONE
[2019-09-28] MEDS ORDERED: ARNU1INH3 PO (20:28)
[2019-09-28] MEDS ORDERED: OMEP-221 PO (20:28)
[2019-09-28] MEDS ORDERED: ATOR40TA75 PO (20:28)
[2019-09-28] MEDS ORDERED: PHAZ1CAP7 PO (20:28)
[2019-09-28] MEDS ORDERED: ALBU8.5H (20:28)
[2019-09-28] MEDS ORDERED: ALLE180T33 PO (20:28)
[2019-09-28] MEDS ORDERED: AMLO10TA5 PO (20:28)
[2019-09-28] MEDS ORDERED: KETOROLAC 30 MG/ML 1ML VIAL IV ONE (20:45)
[2019-09-28] MEDS ORDERED: ONDANSETRON 4MG/2ML VIAL IV ONE (20:45)
[2019-09-28] MEDS ORDERED: NS 1,000 ML IV ONE (20:45)
[2019-09-28] MEDS ORDERED: GI COCKTAIL 50ML BTL(HYOSCYAMINE/MAALOX/LIDOCAINE VISCOUS)(1:3:1) PO ONE (20:45)
[2019-09-28 21:08] LABS: BASO % 0.3 % (0.0-1.0); EOS # 0.1 10^3/uL (0.0-0.5); EOS % 1.1 % (0.0-3.0); HEMATOCRIT 39.8 % (36.0-47.0); HEMOGLOBIN 12.8 g/dl (12.0-15.5); LYMPH # 1.4 10^3/uL (1.5-5.0); LYMPH % 13.1 % (24.0-44.0); MEAN CORPUSCULAR HEMOGLOBIN 28.4 pg (27.0-33.0); MEAN CORPUSCULAR HGB CONC 32.2 g/dl (32.0-36.5); MEAN CORPUSCULAR VOLUME 88.4 fl (80.0-96.0); MONO # 0.5 10^3/uL (0.0-0.8); MONO % 4.9 % (0.0-5.0); NEUTROPHILS # 8.5 10^3/uL (1.5-8.5); NEUTROPHILS % 79.7 % (36.0-66.0); PLATELET COUNT, AUTOMATED 292 10^3/uL (150-450); WHITE BLOOD COUNT 10.6 10^3/uL (4.0-10.0)
[2019-09-28 21:31] LABS: ALBUMIN 3.7 GM/DL (3.2-5.2); ALT/SGPT 42 U/L (12-78); BILIRUBIN,DIRECT 0.2 MG/DL (0.0-0.2); BILIRUBIN,TOTAL 0.4 MG/DL (0.2-1.0); CK-MB VALUE MASS 1.8 NG/ML (<3.6); CPK CREATINE PHOSPHOKINASE 99 U/L (26-192); LIPASE 39 U/L (73-393); MB/CK RELATIVE INDEX 1.82 (< OR =4); TOTAL PROTEIN 7.7 GM/DL (6.4-8.2); TROPONIN I < 0.02 NG/ML (< 0.10)
[2019-09-28] MEDS ORDERED: ISOVUE-370 76% 100ML VIAL As Ordered ONE (21:31)
--- NOTE | 2019-09-28 22:26 | REPVR ---
PROCEDURE INFORMATION: Exam: CT Abdomen And Pelvis With Contrast Exam date and time: 09/28/2019 9:53 PM Age: 49 years old Clinical indication: Abdominal pain; Localized; Left lower quadrant (llq); Additional info: Llq abd pain, diarrhea TECHNIQUE: Imaging protocol: Computed tomography of the abdomen and pelvis with intravenous contrast. Radiation optimization: All CT scans at this facility use at least one of these dose optimization techniques: automated exposure control; mA and/or kV adjustment per patient size (includes targeted exams where dose is matched to clinical indication); or iterative reconstruction. Contrast material: ISOVUE 370; Contrast volume: 100 ml; Contrast route: IV; COMPARISON: CT ABD PELVIS W/O CONTRAST 07/26/2017 9:46 AM FINDINGS: Liver: The liver is low attenuation indicating hepatic steatosis. Gallbladder and bile ducts: Normal. No calcified stones. No ductal dilation. Pancreas: Normal. No ductal dilation. Spleen: Normal. No splenomegaly. Adrenals: Stable nodule in the left adrenal gland. Normal right adrenal gland. Kidneys and ureters: Normal. No hydronephrosis. Stomach and bowel: There is wall thickening in the distal small bowel with associated edema in the adjacent small bowel mesentery. Mild small-bowel mucosal enhancement and intraluminal fluid are present. No small bowel obstruction. No pneumatosis. There is mild colonic diverticulosis without evidence of diverticulitis. Appendix: No evidence of appendicitis. Intraperitoneal space: Trace free fluid in the pelvis. No abscess or free air. Vasculature: Mild aortoiliac atherosclerotic disease. No abdominal aortic aneurysm. Lymph nodes: Unremarkable. No enlarged lymph nodes. Bladder: Unremarkable as visualized. Reproductive: Unremarkable as visualized. Bones/joints: There are mild degenerative changes in the spine and pelvis. Soft tissues: Unremarkable. IMPRESSION: 1. Mucosal enhancement and intraluminal fluid in the small bowel with mild mesenteric edema suggesting a viral or inflammatory enteritis. No bowel obstruction, perforation, or signs of ischemia. 2. Hepatic steatosis. 3. Colonic diverticulosis without evidence of diverticulitis. 4. Normal appendix. Electronically signed by: Crsitino Whatley On 09/28/2019 22:26:08 PM
[2019-09-28 23:00] VITALS: BP 124/63
== END 2019-09-28 23:24 | disposition home or self-care (01) ==
LOC: M ED 19:58
DX: K52.9 Noninfective gastroenteritis and colitis, unspecified (principal); I10 Essential (primary) hypertension; K57.90 Diverticulosis of intestine, part unspecified, without perforation or abscess without bleeding; Z87.891 Personal history of nicotine dependence; Z88.0 Allergy status to penicillin; Z88.1 Allergy status to other antibiotic agents; Z88.2 Allergy status to sulfonamides; Z79.899 Other long term (current) drug therapy
CPT/HCPCS: 36415; 74177; 80047; 80076; 82550; 82553; 83605; 83690; 85025; 87040; 93041; 96361; 96374; 96375; 99285; J1885; J2405; Q9967

== ENCOUNTER → 2019-11-22 | Outpatient (CLI) | payer OTHER ==
[~2019-11-22] MED LIST changes: +ALBU8.5H; +ALLE180T33 PO; +AMLO1TAB25 PO; +ARNU1INH3 PO; +ATOR40TA75 PO; +OMEP-221 PO; +PHAZ1CAP7 PO
[2019-11-22 17:31] LABS: HEMOGLOBIN A1c 7.4 %
[2019-11-22 17:38] LABS: ALBUMIN 3.6 GM/DL (3.2-5.2); ALT/SGPT 31 U/L (12-78); BILIRUBIN,TOTAL 0.4 MG/DL (0.2-1.0); BLOOD UREA NITROGEN 24 MG/DL (7-18); CALCIUM LEVEL 9.1 MG/DL (8.5-10.1); CARBON DIOXIDE LEVEL 28 MEQ/L (21-32); CHLORIDE LEVEL 102 MEQ/L (98-107); CHOLESTEROL LEVEL 139 MG/DL (<200); CREATININE FOR GFR 0.82 MG/DL (0.55-1.30); GLOMERULAR FILTRATION RATE > 60.0 (>51); GLUCOSE, FASTING 137 MG/DL (70-100); HDL CHOLESTEROL 41 MG/DL (>40); LDL CHOLESTEROL 71 MG/DL (<100); NON-HDL-C 98 MG/DL; POTASSIUM SERUM 3.7 MEQ/L (3.5-5.1); SODIUM LEVEL 135 MEQ/L (136-145); TOTAL PROTEIN 7.2 GM/DL (6.4-8.2); TRIGLYCERIDES LEVEL 133 MG/DL (<150)
== END ==
LOC: M PLALAB 12:08
PROVIDERS: ATTEND Physician Assistant
DX: Z13.1 Encounter for screening for diabetes mellitus (principal); E78.2 Mixed hyperlipidemia

== ENCOUNTER → 2020-04-10 | Outpatient (CLI) | payer OTHER ==
--- NOTE | 2020-04-10 11:32 | REPPI ---
INDICATION: PAIN. COMPARISON: Comparison CT study September 28, 2019.. TECHNIQUE: Single AP view of the pelvis. FINDINGS: The bony pelvic ring is intact. There is no evidence of fracture or arthropathy. There are multiple pelvic phleboliths. Visualized bowel gas pattern is normal. Sacrum and SI joints are intact. Psoas margins are symmetric. IMPRESSION: Negative AP view of the pelvis. <Electronically signed by Sunny Herndon > 04/10/20 [id number]
--- NOTE | 2020-04-10 11:35 | REPPI ---
INDICATION: PAIN LEFT HIP. COMPARISON: Comparison CT study September 28, 2019.. TECHNIQUE: AP and frogleg views. FINDINGS: Left hip joint space is preserved. Femoral head is smooth and rounded. Periarticular soft tissues are unremarkable. No fracture or erosive changes seen. IMPRESSION: Negative left hip radiographs. <Electronically signed by Sunny Herndon > 04/10/20 [id number]
== END ==
LOC: M PLAIMG 10:27
PROVIDERS: ATTEND Family Medicine
DX: M25.552 Pain in left hip (principal)

== ENCOUNTER → 2020-10-05 | Outpatient (CLI) | payer OTHER ==
[~2020-10-05] MED LIST changes: -ALBU8.5H; +ALBU8.5H INH; +CYAN500T14 PO; +NATU1TAB5 PO; +TRUL0.5I SC
== END ==
LOC: M LABSMTC 08:42
PROVIDERS: ATTEND Anesthesiology
DX: Z01.812 Encounter for preprocedural laboratory examination (principal); Z11.52 Encounter for screening for COVID-19

== ENCOUNTER 2020-10-10 11:53 | Day surgery (SDC) | payer OTHER ==
[~2020-10-10] VITALS: Ht 170.2 cm; Wt 114.8 kg
[~2020-10-10 11:53] MED LIST changes: +NS 1,000 ML IV ONE
[2020-10-10] MEDS ORDERED: propofoL 200 MG/20 ML VIAL As Ordered ONE ×2 (13:48→14:16)
[2020-10-10] MEDS ORDERED: LIDOCAINE 2% 100MG/5ML SDV (FOR ANES.) As Ordered ONE (13:48)
[2020-10-10] MEDS ORDERED: fentaNYL 100 MCG/2 ML INJECTION (J3010) As Ordered ONE (13:48)
--- NOTE | 2020-10-10 14:35 | ROOR ---
Patient Name: Natalya Uribe Procedure Date: 10/10/2020 2:07 PM Date of : 1970 Age: 50 Room: [facility] Gender: Female Note Status: Finalized Procedure: Upper GI endoscopy Indications: Heartburn, Exclusion of non-erosive esophageal reflux Providers: Alberto Gutierrez MD Referring MD: Tony Ocampo MD Requesting Provider: Medicines: Monitored Anesthesia Care Complications: No immediate complications. Procedure: Pre-Anesthesia Assessment: - Prior to the procedure, a History and Physical was performed, and patient medications and allergies were reviewed. The patient is competent. The risks and benefits of the procedure and the sedation options and risks were discussed with the patient. All questions were answered and informed consent was obtained. Patient identification and proposed procedure were verified by the physician, the nurse and the anesthesiologist in the procedure room. Mental Status Examination: alert and oriented. Airway Examination: normal oropharyngeal airway and neck mobility. Respiratory Examination: clear to auscultation. CV Examination: normal. Prophylactic Antibiotics: The patient does not require prophylactic antibiotics. Prior Anticoagulants: The patient has taken no previous anticoagulant or antiplatelet agents. ASA Grade Assessment: II - A patient with mild systemic disease. After reviewing the risks and benefits, the patient was deemed in satisfactory condition to undergo the procedure. The anesthesia plan was to use monitored anesthesia care (MAC). Immediately prior to administration of medications, the patient was re-assessed for adequacy to receive sedatives. The heart rate, respiratory rate, oxygen saturations, blood pressure, adequacy of pulmonary ventilation, and response to care were monitored throughout the procedure. The physical status of the patient was re-assessed after the procedure. The Endoscope was introduced through the mouth, and advanced to the second part of duodenum. The upper GI endoscopy was accomplished without difficulty. The patient tolerated the procedure well. Findings: The Z-line was regular and was found 38 cm from the incisors. The IGNACIO capsule with delivery system was introduced through the mouth and advanced into the esophagus, such that the IGNACIO pH capsule was positioned 32 cm from the incisors, which was 6 cm proximal to the GE junction. Suction was applied to the well of the IGNACIO pH capsule to suck in the adjacent mucosa of the esophagus using the external vacuum pump set at a minimum vacuum pressure of 550 mmHg for 30 seconds. The IGNACIO pH capsule was then deployed by depressing the plunger on top of the handle to advance the locking pin into the mucosa, thereby attaching the capsule to the esophagus. The plunger was then rotated a quarter turn clockwise to release the capsule from the delivery system. The delivery system was then withdrawn. Endoscopy was utilized for probe placement and diagnostic evaluation. No gross lesions were noted in the entire examined stomach. Decreased folds were found in the duodenal bulb and scalloped mucosa was found in the second portion of the duodenum. Biopsies for histology were taken with a cold forceps for evaluation of celiac disease. Impression: - Z-line regular, 38 cm from the incisors. - No gross lesions in the stomach. - Duodenal mucosal changes seen, suspicious for celiac disease. Biopsied. - The IGNACIO pH capsule was positioned 32 cm from the incisors, which was 6 cm proximal to the GE junction. Recommendation: - Patient has a contact number available for emergencies. The signs and symptoms of potential delayed complications were discussed with the patient. Return to normal activities tomorrow. Written discharge instructions were provided to the patient. - High fiber diet. - Continue present medications. - Await pathology results. - Follow an antireflux regimen. - Telephone GI clinic for study results in 2 weeks. - Return to GI clinic. - Return to primary care physician. Procedure Code(s): --- Professional --- 18611, Esophagogastroduodenoscopy, flexible, transoral; with biopsy, single or multiple Diagnosis Code(s): --- Professional --- K31.89, Other diseases of stomach and duodenum R12, Heartburn CPT copyright 2019 [employer]. All rights reserved. The codes documented in this report are preliminary and upon telecommunications engineer review may be revised to meet current compliance requirements. Alberto Gutierrez MD Alberto Gutierrez MD 10/10/2020 2:35:06 PM Electronically signed by Alberto Gutierrez MD Number of Addenda: 0 Note Initiated On: 10/10/2020 2:07 PM Estimated Blood Loss: Estimated blood loss was minimal.
[2020-10-10 14:55] VITALS: BP 120/58
== END 2020-10-10 15:06 | disposition home or self-care (01) ==
LOC: M OPP 11:53
PROVIDERS: ATTEND Internal Medicine Gastroenterology
DX: K31.89 Other diseases of stomach and duodenum (principal); R12 Heartburn; K21.00 Gastro-esophageal reflux disease with esophagitis, without bleeding; E11.9 Type 2 diabetes mellitus without complications; G47.30 Sleep apnea, unspecified; Z79.899 Other long term (current) drug therapy; Z88.0 Allergy status to penicillin; Z88.1 Allergy status to other antibiotic agents; Z88.2 Allergy status to sulfonamides; Z88.8 Allergy status to other drugs, medicaments and biological substances; Z87.891 Personal history of nicotine dependence
CPT/HCPCS: 43239; 88305; 91035; J3010

== ENCOUNTER → 2020-11-06 | Outpatient (CLI) | payer OTHER ==
[~2020-11-06] MED LIST changes: -NS 1,000 ML IV ONE
== END ==
LOC: M SLEEP HO 12:33
PROVIDERS: ATTEND Nurse Practitioner Family
DX: G47.33 Obstructive sleep apnea (adult) (pediatric) (principal)

== ENCOUNTER → 2021-03-18 | Outpatient (REF) | payer OTHER | LOC: M SFHCWAGY 13:20 | PROVIDERS: ATTEND Nurse Practitioner Women's Health | DX: Z12.4 Encounter for screening for malignant neoplasm of cervix (principal) ==

== ENCOUNTER → 2021-03-18 | Outpatient (CLI) | payer OTHER ==
--- NOTE | 2021-03-18 12:24 | REPMRS ---
Patient History The patient states she had a clinical breast exam in March 2021. No known family history of cancer. Benign lumpectomy of the left breast, June 20, 2014. No Hormone Replacement Therapy Tomosynthesis is performed. [place] breast density [facility] b[facility] Patient states no breast complaints today. Patient has signed MRS History Sheet. Digital Woman Screen Mammo: March 18, 2021 - Exam #: [id number] Bilateral CC and MLO view(s) were taken. Technologist: Paola Beasley, Technologist Prior study comparison: February 01, 2019, bilateral digital woman screen mammo performed at [facility]. August 19, 2017, digital woman screen mammo performed at [facility]. FINDINGS: There are scattered fibroglandular densities. There has been no change in the appearance of the mammogram from the prior studies. There is a mild amount of residual fibroglandular tissue which is fairly symmetric. There is no interval development of dominant mass, architectural distortion, or clustered microcalcification suggestive of malignancy. Assessment: BI-RADS/ACR category 1 mammogram. Negative Mammogram. Recommendation Routine screening mammogram in 1 year (for women over age 40). This mammogram was interpreted with the aid of an FDA-approved computer-aided dectection system. Electronically Signed By: Alessio Cuevas MD 03/18/21 [id number]
== END ==
LOC: M WHC 11:23
PROVIDERS: ATTEND Nurse Practitioner Women's Health
DX: Z12.31 Encounter for screening mammogram for malignant neoplasm of breast (principal)

== ENCOUNTER → 2021-04-14 | Outpatient (CLI) | payer OTHER ==
[2021-04-14 16:09] LABS: HEMOGLOBIN A1c 6.3 %
== END ==
LOC: M PLALAB 12:39
PROVIDERS: ATTEND Family Medicine
DX: M25.50 Pain in unspecified joint (principal); E11.9 Type 2 diabetes mellitus without complications

== ENCOUNTER → 2021-09-25 | Outpatient (CLI) | payer OTHER ==
[~2021-09-25] MED LIST changes: -CITA10TA5; +CITA10TA7; +LOSA100T45 PO; -LOSA100T50 PO; +LOSA50TA28 PO; -LOSA50TA88 PO; -OMEP-221 PO; +OMEP40CA5 PO
== END ==
LOC: M PLAIMG 12:03
PROVIDERS: ATTEND Nurse Practitioner Family
DX: J45.40 Moderate persistent asthma, uncomplicated (principal)

== ENCOUNTER → 2021-09-25 | Outpatient (CLI) | payer OTHER ==
[2021-09-25 15:39] LABS: BASO % 0.4 % (0.0-1.0); EOS # 0.2 10^3/uL (0.0-0.5); EOS % 2.7 % (0.0-3.0); HEMATOCRIT 34.3 % (36.0-47.0); HEMOGLOBIN 10.7 g/dl (12.0-15.5); LYMPH # 2.2 10^3/uL (1.5-5.0); MEAN CORPUSCULAR HEMOGLOBIN 27.4 pg (27.0-33.0); MEAN CORPUSCULAR HGB CONC 31.2 g/dl (32.0-36.5); MEAN CORPUSCULAR VOLUME 87.7 fl (80.0-96.0); MONO # 0.4 10^3/uL (0.0-0.8); MONO % 5.8 % (2.0-8.0); NEUTROPHILS % 58.7 % (36.0-66.0); PLATELET COUNT, AUTOMATED 250 10^3/uL (150-450); RED BLOOD COUNT 3.91 10^6/uL (4.00-5.40); WHITE BLOOD COUNT 6.8 10^3/uL (4.0-10.0)
[2021-09-25 16:08] LABS: C REACTIVE PROTEIN QUANTITATIV 0.54 MG/DL (0.00-0.30); RHEUMATOID FACTOR QUANT < 10.0 IU/ML (<15.0); URIC ACID 4.2 MG/DL (2.6-6.0)
[2021-09-25 16:15] LABS: ERYTHROCYTE SEDIMENTATION RATE 39 mm/hr (0-30)
[2021-09-28 14:08] LABS: ANTINUCLEAR ANTIBODIES DIRECT Negative (Negative)
== END ==
LOC: M PLALAB 12:06
PROVIDERS: ATTEND Physician Assistant Surgical
DX: M21.41 Flat foot [pes planus] (acquired), right foot (principal)

== ENCOUNTER → 2021-10-14 | Outpatient (CLI) | payer OTHER | LOC: M RAD 12:59 | PROVIDERS: ATTEND Nurse Practitioner Family | DX: Z87.891 Personal history of nicotine dependence (principal) ==

== ENCOUNTER → 2022-03-15 | Outpatient (REF) | payer OTHER ==
[2022-03-15 14:02] LABS: BASO % 0.3 % (0.0-1.0); EOS # 0.2 10^3/uL (0.0-0.5); EOS % 2.3 % (0.0-3.0); HEMATOCRIT 34.3 % (36.0-47.0); HEMOGLOBIN 10.9 g/dl (12.0-15.5); LYMPH # 2.7 10^3/uL (1.5-5.0); LYMPH % 30.2 % (24.0-44.0); MEAN CORPUSCULAR HEMOGLOBIN 28.3 pg (27.0-33.0); MEAN CORPUSCULAR HGB CONC 31.8 g/dl (32.0-36.5); MEAN CORPUSCULAR VOLUME 89.1 fl (80.0-96.0); MONO # 0.6 10^3/uL (0.0-0.8); MONO % 6.9 % (2.0-8.0); NEUTROPHILS # 5.3 10^3/uL (1.5-8.5); NEUTROPHILS % 59.7 % (36.0-66.0); PLATELET COUNT, AUTOMATED 257 10^3/uL (150-450); RED BLOOD COUNT 3.85 10^6/uL (4.00-5.40)
[2022-03-15 14:35] LABS: ERYTHROCYTE SEDIMENTATION RATE 42 mm/hr (0-30)
[2022-03-15 15:16] LABS: MAU/CREAT RATIO 4.8 MCG/MG (0.0-30.0)
[2022-03-15 15:20] LABS: ALBUMIN 3.3 GM/DL (3.2-5.2); ALT/SGPT 28 U/L (12-78); BILIRUBIN,TOTAL 0.2 MG/DL (0.2-1.0); BLOOD UREA NITROGEN 20 MG/DL (7-18); C REACTIVE PROTEIN QUANTITATIV 0.34 MG/DL (0.00-0.30); CALCIUM LEVEL 8.9 MG/DL (8.5-10.1); CARBON DIOXIDE LEVEL 32 MEQ/L (21-32); CHLORIDE LEVEL 107 MEQ/L (98-107); CHOLESTEROL LEVEL 109 MG/DL (<200); CHOLESTEROL RISK RATIO 2.658 (<5); CREATININE FOR GFR 0.66 MG/DL (0.55-1.30); GLOMERULAR FILTRATION RATE > 60.0 (>51); GLUCOSE, FASTING 115 MG/DL (70-100); HDL CHOLESTEROL 41 MG/DL (>40); LDL CHOLESTEROL 45 MG/DL (<100); NON-HDL-C 68 MG/DL; POTASSIUM SERUM 3.9 MEQ/L (3.5-5.1); RHEUMATOID FACTOR QUANT < 10.0 IU/ML (<15.0); SODIUM LEVEL 141 MEQ/L (136-145); TOTAL PROTEIN 6.3 GM/DL (6.4-8.2); TRIGLYCERIDES LEVEL 114 MG/DL (<150); URIC ACID 3.5 MG/DL (2.6-6.0)
[2022-03-16 23:10] LABS: ANTINUCLEAR ANTIBODIES DIRECT Negative (Negative); CYCLIC CITRULLINATED PEPTIDE 2 units (0-19)
== END ==
LOC: M PLALAB 13:17
PROVIDERS: ATTEND Family Medicine
DX: R70.0 Elevated erythrocyte sedimentation rate (principal); E11.9 Type 2 diabetes mellitus without complications

== ENCOUNTER 2022-06-07 06:49 | Emergency (ER) | payer OTHER ==
[~2022-06-07] VITALS: Ht 168.9 cm; Wt 109.5 kg
[2022-06-07] MEDS ORDERED: ARNU1INH3 PO (07:04)
[2022-06-07] MEDS ORDERED: ESTR2TAB3 PO (07:04)
[2022-06-07] MEDS ORDERED: PANT40TA29 PO (07:04)
[2022-06-07] MEDS ORDERED: MEDR1TAB2 PO (07:04)
[2022-06-07] MEDS ORDERED: ACET-841 PO (07:07)
[2022-06-07 09:29] LABS: BASO % 0.2 % (0.0-1.0); EOS # 0.1 10^3/uL (0.0-0.5); EOS % 0.6 % (0.0-3.0); HEMATOCRIT 37.8 % (36.0-47.0); HEMOGLOBIN 12.3 g/dl (12.0-15.5); LYMPH # 1.9 10^3/uL (1.5-5.0); LYMPH % 14.9 % (24.0-44.0); MEAN CORPUSCULAR HGB CONC 32.5 g/dl (32.0-36.5); MEAN CORPUSCULAR VOLUME 86.1 fl (80.0-96.0); MONO # 0.7 10^3/uL (0.0-0.8); MONO % 5.9 % (2.0-8.0); NEUTROPHILS # 9.7 10^3/uL (1.5-8.5); NEUTROPHILS % 77.6 % (36.0-66.0); PLATELET COUNT, AUTOMATED 293 10^3/uL (150-450); RED BLOOD COUNT 4.39 10^6/uL (4.00-5.40); WHITE BLOOD COUNT 12.5 10^3/uL (4.0-10.0)
[2022-06-07] MEDS ORDERED: ISOVUE-370 76% 100ML VIAL As Ordered ONE (09:45)
[2022-06-07 09:56] LABS: ALBUMIN 3.8 G/DL (3.2-5.2); BILIRUBIN,DIRECT 0.3 MG/DL (<0.4); BILIRUBIN,TOTAL 0.7 MG/DL (0.3-1.2)
[2022-06-07] MEDS ORDERED: CEFD300CAP PO (11:00)
[2022-06-07 11:18] VITALS: BP 170/77
== END 2022-06-07 11:24 | disposition home or self-care (01) ==
LOC: M ED 06:49
DX: N39.0 Urinary tract infection, site not specified (principal); I10 Essential (primary) hypertension; F41.9 Anxiety disorder, unspecified; F32.9 Major depressive disorder, single episode, unspecified; K57.92 Diverticulitis of intestine, part unspecified, without perforation or abscess without bleeding; Z87.442 Personal history of urinary calculi; Z79.84 Long term (current) use of oral hypoglycemic drugs; Z79.899 Other long term (current) drug therapy; Z88.0 Allergy status to penicillin; Z88.1 Allergy status to other antibiotic agents; Z88.2 Allergy status to sulfonamides; Z88.8 Allergy status to other drugs, medicaments and biological substances

== ENCOUNTER → 2022-06-19 | Outpatient (CLI) | payer OTHER ==
[~2022-06-19] MED LIST changes: +ACET-841 PO; +CEFD300CAP PO; +ESTR2TAB3 PO; +MEDR1TAB2 PO; +PANT40TA29 PO
[2022-06-19 09:03] LABS: CORTISOL AM 0.8 UG/DL (4.3-22.4)
[2022-06-19 09:05] LABS: BLOOD UREA NITROGEN 28 MG/DL (9-23); CALCIUM LEVEL 9.2 MG/DL (8.5-10.1); CARBON DIOXIDE LEVEL 26 MMOL/L (20-31); CHLORIDE LEVEL 107 MMOL/L (98-107); CREATININE FOR GFR 0.68 MG/DL (0.55-1.30); GLOMERULAR FILTRATION RATE > 60.0 (>51); GLUCOSE, FASTING 119 MG/DL (60-100); POTASSIUM SERUM 4.4 MMOL/L (3.5-5.1); SODIUM LEVEL 142 MMOL/L (136-145)
== END ==
LOC: M LAB 07:45
PROVIDERS: ATTEND Family Medicine
DX: E27.9 Disorder of adrenal gland, unspecified (principal)

== ENCOUNTER → 2022-06-21 | Outpatient (REF) | payer OTHER | LOC: M LAB REF 15:59 | PROVIDERS: ATTEND Family Medicine | DX: E27.9 Disorder of adrenal gland, unspecified (principal) ==

== ENCOUNTER → 2022-06-29 | Outpatient (REF) | payer OTHER ==
[2022-06-29 17:31] LABS: BASO % 0.4 % (0.0-1.0); EOS # 0.2 10^3/uL (0.0-0.5); EOS % 1.9 % (0.0-3.0); HEMATOCRIT 38.9 % (36.0-47.0); HEMOGLOBIN 12.2 g/dl (12.0-15.5); LYMPH # 2.6 10^3/uL (1.5-5.0); LYMPH % 29.2 % (24.0-44.0); MEAN CORPUSCULAR HEMOGLOBIN 27.4 pg (27.0-33.0); MEAN CORPUSCULAR HGB CONC 31.4 g/dl (32.0-36.5); MEAN CORPUSCULAR VOLUME 87.4 fl (80.0-96.0); MONO # 0.6 10^3/uL (0.0-0.8); MONO % 6.7 % (2.0-8.0); NEUTROPHILS # 5.5 10^3/uL (1.5-8.5); PLATELET COUNT, AUTOMATED 269 10^3/uL (150-450); RED BLOOD COUNT 4.45 10^6/uL (4.00-5.40)
[2022-06-29 17:38] LABS: ALBUMIN 3.8 G/DL (3.2-5.2); ALKALINE PHOSPHATASE 149 U/L (46-116); ALT/SGPT 23 U/L (7.0-40); AST/SGOT 23 U/L (<34); BILIRUBIN,TOTAL 0.4 MG/DL (0.3-1.2); BLOOD UREA NITROGEN 20 MG/DL (9-23); CALCIUM LEVEL 9.7 MG/DL (8.5-10.1); CARBON DIOXIDE LEVEL 30 MMOL/L (20-31); CHLORIDE LEVEL 103 MMOL/L (98-107); CREATININE FOR GFR 0.67 MG/DL (0.55-1.30); GLOMERULAR FILTRATION RATE > 60.0 (>51); GLUCOSE, FASTING 87 MG/DL (60-100); POTASSIUM SERUM 3.7 MMOL/L (3.5-5.1); SODIUM LEVEL 141 MMOL/L (136-145)
[2022-06-29 18:17] LABS: ERYTHROCYTE SEDIMENTATION RATE 55 mm/hr (0-30)
[2022-06-29 18:36] LABS: IMMUNOGLOBULIN A 237.6 MG/DL (40-350)
[2022-06-29 18:37] LABS: IMMUNOGLOBULIN G 759 MG/DL (650-1600); IMMUNOGLOBULIN M 118.9 MG/DL (50-300)
[2022-07-01 20:12] LABS: ALBUMIN 3.5 g/dL (2.9-4.4); ALPHA-1-GLOBULINS 0.3 g/dL (0.0-0.4); ALPHA-2-GLOBULINS 1.3 g/dL (0.4-1.0); BETA-1-GLOBULINS 1.3 g/dL (0.7-1.3); GAMMA GLOBULINS 0.9 g/dL (0.4-1.8); TOTAL PROTEIN ELECTROPHORESIS 7.3 g/dL (6.0-8.5)
== END ==
LOC: M SFHCRHEU 14:23
PROVIDERS: ATTEND Internal Medicine Rheumatology
DX: M35.3 Polymyalgia rheumatica (principal); R70.0 Elevated erythrocyte sedimentation rate

== ENCOUNTER → 2022-06-29 | Outpatient (CLI) | payer OTHER | LOC: M RAD 14:52 | PROVIDERS: ATTEND Internal Medicine Rheumatology | DX: M35.3 Polymyalgia rheumatica (principal); R70.0 Elevated erythrocyte sedimentation rate; M77.31 Calcaneal spur, right foot; M77.32 Calcaneal spur, left foot ==

== ENCOUNTER 2022-09-27 12:09 | Emergency (ER) | payer OTHER ==
[~2022-09-27] VITALS: Ht 167.6 cm; Wt 111.6 kg
[~2022-09-27 12:09] MED LIST changes: -LOSA100T45 PO; +LOSA100T46 PO
[2022-09-27 12:59] LABS: BASO % 0.3 % (0.0-1.0); EOS # 0.2 10^3/uL (0.0-0.5); EOS % 1.8 % (0.0-3.0); HEMATOCRIT 38.5 % (36.0-47.0); HEMOGLOBIN 12.4 g/dl (12.0-15.5); LYMPH # 1.8 10^3/uL (1.5-5.0); LYMPH % 20.4 % (24.0-44.0); MEAN CORPUSCULAR HEMOGLOBIN 27.6 pg (27.0-33.0); MEAN CORPUSCULAR HGB CONC 32.2 g/dl (32.0-36.5); MEAN CORPUSCULAR VOLUME 85.7 fl (80.0-96.0); MONO # 0.4 10^3/uL (0.0-0.8); MONO % 4.9 % (2.0-8.0); NEUTROPHILS # 6.4 10^3/uL (1.5-8.5); NEUTROPHILS % 72.2 % (36.0-66.0); PLATELET COUNT, AUTOMATED 254 10^3/uL (150-450); RED BLOOD COUNT 4.49 10^6/uL (4.00-5.40); WHITE BLOOD COUNT 8.9 10^3/uL (4.0-10.0)
[2022-09-27 13:26] LABS: CPK CREATINE PHOSPHOKINASE 137 U/L (34-145)
[2022-09-27 13:27] LABS: ALBUMIN 3.4 G/DL (3.2-5.2); ALKALINE PHOSPHATASE 127 U/L (46-116); ALT/SGPT 27 U/L (7.0-40); AST/SGOT 22 U/L (<34); BILIRUBIN,DIRECT 0.2 MG/DL (<0.4); BILIRUBIN,TOTAL 0.5 MG/DL (0.3-1.2); BLOOD UREA NITROGEN 17 MG/DL (9-23); CALCIUM LEVEL 9.2 MG/DL (8.5-10.1); CARBON DIOXIDE LEVEL 28 MMOL/L (20-31); CHLORIDE LEVEL 105 MMOL/L (98-107); CK-MB VALUE MASS < 1.0 NG/ML (<3.6); CREATININE FOR GFR 0.66 MG/DL (0.55-1.30); GLOMERULAR FILTRATION RATE > 60.0 (>51); GLUCOSE, FASTING 121 MG/DL (60-100); MB/CK RELATIVE INDEX 0.72 (< OR =4); POTASSIUM SERUM 3.3 MMOL/L (3.5-5.1); SODIUM LEVEL 141 MMOL/L (136-145); TOTAL PROTEIN 6.8 G/DL (5.7-8.2)
[2022-09-27] MEDS ORDERED: GI COCKTAIL 50ML BTL(HYOSCYAMINE/MAALOX/LIDOCAINE VISCOUS)(1:3:1) PO ONE (13:50)
[2022-09-27 14:01] LABS: LIPASE 27 U/L (12-53)
[2022-09-27 14:02] LABS: CK-MB VALUE MASS < 1.0 NG/ML (<3.6)
[2022-09-27 14:05] LABS: THYROID STIMULATING HORMONE 2.661 uIU/ML (0.55-4.78)
[2022-09-27 14:06] LABS: FREE T4 0.96 NG/DL (0.89-1.76)
[2022-09-27 14:08] LABS: CPK CREATINE PHOSPHOKINASE 146 U/L (34-145); MB/CK RELATIVE INDEX 0.68 (< OR =4)
[2022-09-27] MEDS ORDERED: ISOVUE-370 76% 100ML VIAL As Ordered ONE (14:16)
[2022-09-27] MEDS ORDERED: KETOROLAC 30 MG/ML 1ML VIAL IV ONE (15:25)
[2022-09-27] MEDS ORDERED: METOCLOPRAMIDE 10MG TAB PO ONE (15:25)
[2022-09-27] MEDS ORDERED: NEUR100C PO (15:47)
[2022-09-27] MEDS ORDERED: SUCR1TA PO (15:47)
[2022-09-27] MEDS ORDERED: REGL5TAB2 PO (15:47)
[2022-09-27 15:52] VITALS: BP 150/74
== END 2022-09-27 16:22 | disposition home or self-care (01) ==
LOC: M ED 12:09
DX: R07.89 Other chest pain (principal); E11.9 Type 2 diabetes mellitus without complications; I10 Essential (primary) hypertension; E78.5 Hyperlipidemia, unspecified; G47.33 Obstructive sleep apnea (adult) (pediatric); K21.9 Gastro-esophageal reflux disease without esophagitis; N32.81 Overactive bladder; Z87.891 Personal history of nicotine dependence; Z88.0 Allergy status to penicillin; Z88.2 Allergy status to sulfonamides; Z88.8 Allergy status to other drugs, medicaments and biological substances; Z79.899 Other long term (current) drug therapy; Z79.51 Long term (current) use of inhaled steroids
CPT/HCPCS: 71046; 71275; 80048; 80076; 82550; 82553; 83690; 84439; 84443; 85025; 93005; 93041; 94760; 96374; 99285; J1885; Q9967

== ENCOUNTER → 2022-10-15 | Outpatient (CLI) | payer OTHER ==
[~2022-10-15] MED LIST changes: +NEUR100C PO; +REGL5TAB2 PO; +SUCR1TA PO
== END ==
LOC: M PAIN 13:00
PROVIDERS: ATTEND Nurse Practitioner Family
DX: M54.2 Cervicalgia (principal); I10 Essential (primary) hypertension; N39.46 Mixed incontinence; N32.81 Overactive bladder; E11.9 Type 2 diabetes mellitus without complications; E78.5 Hyperlipidemia, unspecified; G47.30 Sleep apnea, unspecified; Z87.891 Personal history of nicotine dependence; Z79.899 Other long term (current) drug therapy; Z88.0 Allergy status to penicillin; Z88.1 Allergy status to other antibiotic agents; Z88.8 Allergy status to other drugs, medicaments and biological substances; Z88.2 Allergy status to sulfonamides

== ENCOUNTER → 2022-12-20 | Outpatient (CLI) | payer OTHER | LOC: M PAIN 14:00 | PROVIDERS: ATTEND Nurse Practitioner Family | DX: Z53.21 Procedure and treatment not carried out due to patient leaving prior to being seen by health care provider (principal) ==

== ENCOUNTER → 2023-02-23 | Outpatient (REF) | payer OTHER | LOC: M SFHCWAGY 17:20 | PROVIDERS: ATTEND Nurse Practitioner Family | DX: Z12.4 Encounter for screening for malignant neoplasm of cervix (principal) ==

== ENCOUNTER → 2023-02-23 | Outpatient (CLI) | payer OTHER | LOC: M WHC 13:02 | PROVIDERS: ATTEND Nurse Practitioner Family | DX: Z12.31 Encounter for screening mammogram for malignant neoplasm of breast (principal) ==

== ENCOUNTER → 2023-06-14 | Outpatient (CLI) | payer OTHER ==
[2023-06-14 16:07] LABS: BASO % 0.5 % (0.0-1.0); EOS # 0.2 10^3/uL (0.0-0.5); EOS % 1.9 % (0.0-3.0); HEMATOCRIT 36.6 % (36.0-47.0); HEMOGLOBIN 11.7 g/dl (12.0-15.5); LYMPH # 2.2 10^3/uL (1.5-5.0); LYMPH % 27.2 % (24.0-44.0); MEAN CORPUSCULAR HEMOGLOBIN 27.3 pg (27.0-33.0); MEAN CORPUSCULAR VOLUME 85.5 fl (80.0-96.0); MONO # 0.5 10^3/uL (0.0-0.8); MONO % 6.6 % (2.0-8.0); NEUTROPHILS % 63.5 % (36.0-66.0); PLATELET COUNT, AUTOMATED 269 10^3/uL (150-450); RED BLOOD COUNT 4.28 10^6/uL (4.00-5.40); WHITE BLOOD COUNT 7.9 10^3/uL (4.0-10.0)
[2023-06-14 16:08] LABS: TOTAL IRON BINDING CAPACITY 371 UG/DL (250-425)
[2023-06-14 16:09] LABS: ALBUMIN 3.5 G/DL (3.2-5.2); ALKALINE PHOSPHATASE 141 U/L (46-116); ALT/SGPT 19 U/L (7.0-40); AST/SGOT 15 U/L (<34); BILIRUBIN,TOTAL 0.3 MG/DL (0.3-1.2); BLOOD UREA NITROGEN 18 MG/DL (9-23); CALCIUM LEVEL 9.1 MG/DL (8.5-10.1); CARBON DIOXIDE LEVEL 30 MMOL/L (20-31); CHLORIDE LEVEL 105 MMOL/L (98-107); CHOLESTEROL LEVEL 115 MG/DL (<200); CHOLESTEROL RISK RATIO 2.79 (<5); CREATININE FOR GFR 0.73 MG/DL (0.55-1.30); GLOMERULAR FILTRATION RATE > 60.0 (>51); GLUCOSE, FASTING 97 MG/DL (60-100); HDL CHOLESTEROL 41.2 MG/DL (>40); IRON (FE) 44 UG/DL (50-170); LDL CHOLESTEROL 54.6 MG/DL (<100); NON-HDL-C 73.8 MG/DL; PERCENT SATURATION 11.9 % (13.2-45.0); POTASSIUM SERUM 3.2 MMOL/L (3.5-5.1); SODIUM LEVEL 141 MMOL/L (136-145); TOTAL PROTEIN 6.4 G/DL (5.7-8.2); TRIGLYCERIDES LEVEL 96 MG/DL (<150)
[2023-06-14 16:11] LABS: FERRITIN 9.4 NG/ML (7.3-270.7)
== END ==
LOC: M PLALAB 12:46
PROVIDERS: ATTEND Family Medicine
DX: D64.9 Anemia, unspecified (principal); E11.9 Type 2 diabetes mellitus without complications

== ENCOUNTER → 2023-09-06 | Outpatient (CLI) | payer OTHER ==
[2023-09-06 14:11] LABS: BLOOD UREA NITROGEN 17 MG/DL (9-23); CALCIUM LEVEL 9.1 MG/DL (8.5-10.1); CARBON DIOXIDE LEVEL 29 MMOL/L (20-31); CHLORIDE LEVEL 106 MMOL/L (98-107); CREATININE FOR GFR 0.71 MG/DL (0.55-1.30); GLOMERULAR FILTRATION RATE > 60.0 (>51); GLUCOSE, FASTING 113 MG/DL (60-100); MAGNESIUM LEVEL 1.9 MG/DL (1.8-2.4); POTASSIUM SERUM 3.6 MMOL/L (3.5-5.1); SODIUM LEVEL 143 MMOL/L (136-145)
== END ==
LOC: M PLALAB 10:52
PROVIDERS: ATTEND Physician Assistant
DX: E87.6 Hypokalemia (principal); Z87.898 Personal history of other specified conditions

== ENCOUNTER → 2023-11-23 | Outpatient (CLI) | payer OTHER ==
[~2023-11-23] MED LIST changes: +FLUO-365; -FLUO20CA22
== END ==
LOC: M RAD 10:29
PROVIDERS: ATTEND Nurse Practitioner Family
DX: Z12.2 Encounter for screening for malignant neoplasm of respiratory organs (principal); Z87.891 Personal history of nicotine dependence; J45.40 Moderate persistent asthma, uncomplicated; R91.8 Other nonspecific abnormal finding of lung field; I25.10 Atherosclerotic heart disease of native coronary artery without angina pectoris; I70.0 Atherosclerosis of aorta; D35.02 Benign neoplasm of left adrenal gland; J98.4 Other disorders of lung

== ENCOUNTER → 2024-03-23 | Outpatient (CLI) | payer OTHER | LOC: M WHC 10:01 | PROVIDERS: ATTEND Nurse Practitioner Family | DX: Z12.31 Encounter for screening mammogram for malignant neoplasm of breast (principal); R92.313 Mammographic fatty tissue density, bilateral breasts ==

== ENCOUNTER → 2024-05-15 | Outpatient (CLI) | payer OTHER ==
[2024-05-15 15:25] LABS: BASO % 0.3 % (0.0-1.0); EOS # 0.3 10^3/uL (0.0-0.5); HEMOGLOBIN 11.4 g/dl (12.0-15.5); LYMPH # 2.5 10^3/uL (1.5-5.0); LYMPH % 27.7 % (24.0-44.0); MEAN CORPUSCULAR HEMOGLOBIN 27.1 pg (27.0-33.0); MEAN CORPUSCULAR HGB CONC 31.7 g/dl (32.0-36.5); MEAN CORPUSCULAR VOLUME 85.7 fl (80.0-96.0); MONO # 0.6 10^3/uL (0.0-0.8); MONO % 6.6 % (2.0-8.0); NEUTROPHILS # 5.4 10^3/uL (1.5-8.5); NEUTROPHILS % 61.3 % (36.0-66.0); PLATELET COUNT, AUTOMATED 305 10^3/uL (150-450); WHITE BLOOD COUNT 8.9 10^3/uL (4.0-10.0)
[2024-05-15 15:29] LABS: ALBUMIN 3.2 G/DL (3.2-5.2); ALKALINE PHOSPHATASE 161 U/L (35-104); ALT/SGPT 22 U/L (7.0-40); AST/SGOT 16 U/L (<34); BILIRUBIN,TOTAL 0.4 MG/DL (0.3-1.2); BLOOD UREA NITROGEN 20 MG/DL (9-23); CALCIUM LEVEL 9.2 MG/DL (8.5-10.1); CARBON DIOXIDE LEVEL 30 MMOL/L (20-31); CHLORIDE LEVEL 106 MMOL/L (98-107); CHOLESTEROL LEVEL 134 MG/DL (<200); CHOLESTEROL RISK RATIO 2.87 (<5); GLOMERULAR FILTRATION RATE > 60.0 (>51); GLUCOSE, FASTING 105 MG/DL (60-100); HDL CHOLESTEROL 46.6 MG/DL (>40); LDL CHOLESTEROL 69.6 MG/DL (<100); NON-HDL-C 87.4 MG/DL; SODIUM LEVEL 143 MMOL/L (136-145); TOTAL PROTEIN 6.6 G/DL (5.7-8.2); TRIGLYCERIDES LEVEL 89 MG/DL (<150)
[2024-05-15 15:35] LABS: THYROID STIMULATING HORMONE 3.904 uIU/ML (0.55-4.78)
[2024-05-15 15:56] LABS: CREATININE, URINE 175.3 MG/DL
[2024-05-15 15:57] LABS: MALB URINE SIEMENS < 3.0 MG/L
[2024-05-15 16:01] LABS: HEMOGLOBIN A1c 6.4 % (4.0-6.0)
== END ==
LOC: M PLALAB 11:15
PROVIDERS: ATTEND Family Medicine
DX: E11.9 Type 2 diabetes mellitus without complications (principal)

== ENCOUNTER → 2025-01-16 | Outpatient (CLI) | payer OTHER ==
[~2025-01-16] MED LIST changes: -PROZ20CA11 PO; +PROZ20CA12 PO
== END ==
LOC: M RAD 10:43
PROVIDERS: ATTEND Physician Assistant
DX: Z12.2 Encounter for screening for malignant neoplasm of respiratory organs (principal); Z87.891 Personal history of nicotine dependence; R91.8 Other nonspecific abnormal finding of lung field; I70.0 Atherosclerosis of aorta; I25.10 Atherosclerotic heart disease of native coronary artery without angina pectoris

== ENCOUNTER → 2025-04-30 | Outpatient (CLI) | payer OTHER ==
[~2025-04-30] MED LIST changes: +BREO1INH3 INH; +LEVOTAB10 PO; +MONT10TA97 PO; -PROZ20CA12 PO; +PROZ20CA25 PO; +SEMA1PEN2 SQ
[2025-05-03 11:06] LABS: HPV APTIMA Not Detected (Not Detected)
== END ==
LOC: M WHC 12:57
PROVIDERS: ATTEND Physician Assistant
DX: Z12.31 Encounter for screening mammogram for malignant neoplasm of breast (principal); R92.323 Mammographic fibroglandular density, bilateral breasts

== ENCOUNTER → 2025-05-22 | Outpatient (CLI) | payer OTHER ==
[2025-05-22 13:14] LABS: BASO # 0.0 10^3/uL (0.0-0.2); BASO % 0.5 % (0.0-1.0); EOS # 0.2 10^3/uL (0.0-0.5); EOS % 2.2 % (0.0-3.0); LYMPH # 2.3 10^3/uL (1.5-5.0); LYMPH % 27.2 % (24.0-44.0); MONO # 0.6 10^3/uL (0.0-0.8); MONO % 6.7 % (2.0-8.0); NEUTROPHILS # 5.2 10^3/uL (1.5-8.5); NEUTROPHILS % 62.9 % (36.0-66.0); PLATELET COUNT, AUTOMATED 300 10^3/uL (150-450)
[2025-05-22 13:21] LABS: ALT/SGPT 28.0 U/L (7.0-40); AST/SGOT 24.0 U/L (<34); CALCIUM LEVEL 9.3 MG/DL (8.5-10.1); CARBON DIOXIDE LEVEL 28.0 MMOL/L (20-31); CHLORIDE LEVEL 104.0 MMOL/L (98-107); CREATININE FOR GFR 0.84 MG/DL (0.55-1.30); GLOMERULAR FILTRATION RATE 81.5 (>51); POTASSIUM SERUM 3.6 MMOL/L (3.5-5.1); SODIUM LEVEL 143.0 MMOL/L (136-145)
[2025-05-22 13:32] LABS: APPEARANCE, URINE HAZY (CLEAR); BACTERIA, URINE AUTO NEGATIVE (NEGATIVE); BILIRUBIN, URINE AUTO NEGATIVE (NEGATIVE); BLOOD, URINE BLOOD NEGATIVE (NEGATIVE); GLUCOSE, URINE (UA) AUTO NEGATIVE (NEGATIVE); KETONE, URINE AUTO NEGATIVE (NEGATIVE); LEUKOCYTE ESTERASE, URINE AUTO NEGATIVE (NEGATIVE); MUCUS, URINE SMALL (NEGATIVE); NITRITE, URINE AUTO NEGATIVE (NEGATIVE); PROTEIN, URINE AUTO NEGATIVE (NEGATIVE); RBC, URINE AUTO 1 /HPF (0-3); SPECIFIC GRAVITY URINE AUTO 1.020 (1.002-1.035); SQUAMOUS EPITHELIAL CELL UR AU 6 /HPF (0-6); UROBILINOGEN, URINE AUTO 0.2 mg/dL (0.0-2.0); WBC, URINE AUTO 1 /HPF (0-3)
== END ==
LOC: M PLALAB 10:43
PROVIDERS: ATTEND Family Medicine
DX: R31.0 Gross hematuria (principal)

== ENCOUNTER → 2025-05-29 | Outpatient (CLI) | payer OTHER ==
[~2025-05-29] MED LIST changes: +ISOVUE-370 76% 100 ML VIAL ONE
== END ==
LOC: M PLAIMG 10:35
PROVIDERS: ATTEND Family Medicine
DX: R31.0 Gross hematuria (principal)
CPT/HCPCS: 74178; Q9967